=== PATIENT | male | born 1995 | race African-American/Black ===

== ENCOUNTER 2016-09-22 02:38 | Emergency (ER) | payer OTHER ==
[2016-09-22] MEDS ORDERED: TRAMADOL 50 MG TAB ONE (03:23)
== END 2016-09-22 03:40 | disposition home or self-care (01) ==
LOC: ER 02:38
DX: S82.844A Nondisplaced bimalleolar fracture of right lower leg, initial encounter for closed fracture (principal); W17.89XA Other fall from one level to another, initial encounter; Y93.44 Activity, trampolining; S93.401A Sprain of unspecified ligament of right ankle, initial encounter